=== PATIENT | female | born 1970 | race Caucasian/White ===

== ENCOUNTER 2017-03-16 17:05 | Observation (INO) | payer SELFPAY ==
[~2017-03-16 17:05] MED LIST: ISOVUE-370 76%-LOCM 1 ML ONE
[2017-03-16 17:31] LABS: #Basophils 0.1 thou/uL (0.0-0.2); #Eosinphils 0.4 thou/uL (0.0-0.7); #Lymphocytes 3.5 thou/uL (1.20-3.40); #Monocytes 0.8 thou/uL (0.11-0.59); #Neutrophils 13.4 thou/uL (1.40-6.50); %Basophils 0.5 % (0.0-1.0); %Lymphocytes 19.3 % (21.0-51.0); %Monocytes 4.5 % (0.0-10.0); Mean Platelet Volume 6.5 fL (7.4-10.4); Red Blood Cell (RBC) Count 5.42 mill/uL (4.20-5.40); White Blood Cell (WBC) Count 18.2 thou/uL (4.8-10.8)
[2017-03-16 17:51] LABS: ALT (SGPT) 12 U/L (8-55); AST (SGOT) 12 U/L (5-34); Alkaline Phosphatase 119 U/L (40-150); Anion Gap 14 mmol/L (10-20); BUN (Urea Nitrogen) 14 mg/dL (7.0-18.7); Bilirubin, Total 0.3 mg/dL (0.2-1.2); CK (CPK) 62 U/L (29-168); Calc. Creatinine Clearance 0 mL/min (70-130); Calcium 9.4 mg/dL (7.8-10.44); Carbon Dioxide 25 mmol/L (22-29); Chloride 102 mmol/L (98-107); Estimated GFR-MDRD 75; Globulin 4.2 g/dL (2.4-3.5); Lipase 14 U/L (8-78)
[2017-03-16 18:01] LABS: Troponin I Less than 0.010 ng/mL (< 0.028)
--- NOTE | 2017-03-16 18:21 | RAD ---
PORTABLE CHEST ONE VIEW: Date: 03-16-17 Time: 5:24 p.m. History: Chest pain. FINDINGS: The heart size is normal. The lungs are well expanded without focal areas of consolidation, pneumoth orax, or pleural effusions. IMPRESSION: No radiographic evidence of acute cardiopulmonary process. POS: [facility]
[2017-03-16] MEDS ORDERED: Nitroglycerin 2% Ointment 1 INCH/1 GM Packet ONE (18:30)
[2017-03-16] MEDS ORDERED: Nitroglycerin 0.4 MG TAB (25 Tab Bottle) ONE (18:38)
[2017-03-16 19:58] LABS: Bilirubin Negative (Negative); Blood, Urine Trace (Negative); Glucose, Urine (Dipstick) Negative (Negative); Ketone, Urine Negative (Negative); Nitrite Negative (Negative); Protein, Urine (Dipstick) Negative (Neg-Trace); Urobilinogen 0.2 mg/dL (0.2-1.0)
[2017-03-16 20:00] LABS: Bacteria/HPF 1+ HPF (None Seen); Hyaline Casts/LPF 0-3 HYALINE CAST LPF (0-3 Hyaline); Squamous Epithelial 0-3 HPF (0-3)
--- NOTE | 2017-03-16 20:27 | CT ---
CTA CHEST WITH 3D VOLUME RENDERING: Clinical history: Dyspnea, tachycardia. FINDINGS: There is a suboptimal contrast bolus within the pulmonary arterial system which precludes reliable a ssessment of the pulmonary arterial system. Thoracic aorta is non-aneurysmal. Lungs are clear. No ef fusion or pneumothorax. IMPRESSION: Suboptimal bolus for detection of pulmonary embolus. Consider VQ scan for further evaluation. POS: [facility]
[2017-03-16] MEDS ORDERED: Aspirin 325 MG TAB ONE (20:28)
[2017-03-16 20:57] LABS: Troponin I Less than 0.010 ng/mL (< 0.028)
[2017-03-16 21:41] LABS: Amphetamine Detected (NotDetected); Methadone Not Detected (NotDetected); Methamphetamine Detected (NotDetected)
[2017-03-16] MEDS ORDERED: Acetaminophen 500 MG TAB ONE (21:58)
--- NOTE | 2017-03-16 22:27 | HP ---
PRIMARY CARE PHYSICIAN: [facility] call admission. REASON FOR ADMISSION: Chest pain. HISTORY OF PRESENT ILLNESS: A 46-year-old female who has underlying morbid obesity, [facility]. She describes chest pain, left-sided, as well as substern al in location, constant pain, sharp in nature, nonradiating, no association of nausea, vomiting, di aphoresis, or shortness of breath. This pain is going on for the last 2-3 days without stop constan t. There is no specific aggravating or relieving factor. The patient does have history of methamph etamine abuse. Per patient, her last use was on 03/02/2017. She also reports that she was smoking before, but she quit smoking about a month ago. Patient also has some reproducible pain. She denie s any cough, hemoptysis, lower extremity edema, calf tenderness. She does report subjective feveris h feeling, but she did not measure temperature at home and she was afebrile in the emergency room. In the emergency room, patient was hypertensive. The patient reports that she has a history of hype rtension, but she was not taking any medication. She was slightly tachycardic. She had routine blo od test, which showed leukocytosis. Patient denies any UTI symptoms. She denies any constipation, diarrhea. She denies any pain anywhere else. She denies any hematochezia or melena. She denies an y viral illness. She denies any sore throat. REVIEW OF SYSTEMS: The following complete review of systems was negative, unless otherwise mentione d in the HPI or below: Constitutional: Weight loss or gain, ability to conduct usual activities. Skin: Rash, itching. Eyes: Double vision, pain. ENT/Mouth: Nose bleeding, neck stiffness, pain, tenderness. Cardiovascular: Palpitations, dyspnea on exertion, orthopnea. Respiratory: Shortnes s of breath, wheezing, cough, hemoptysis, fever or night sweats. Gastrointestinal: Poor appetite, abdominal pain, heartburn, nausea, vomiting, constipation, or diarrhea. Genitourinary: Urgency, fr equency, dysuria, nocturia. Musculoskeletal: Pain, swelling. Neurologic/Psychiatric: Anxiety, de pression. Allergy/Immunologic: Skin rash, bleeding tendency. Please see my HPI for pertinent posi tives and negatives. All other review of systems reviewed and negative except as mentioned in the H PI. When I saw this patient in the emergency room, patient was complaining of headache. She denies any GI symptoms. PAST MEDICAL HISTORY: Morbid obesity. Patient does report that she has history of hypertension, bu t it is untreated. PAST SURGICAL HISTORY: Cholecystectomy, . PAST PSYCHIATRIC: The patient denies any psychiatric illness. SOCIAL HISTORY: Patient drinks alcohol socially once a month. She has history of methamphetamine a buse and last use was on 03/02/2017. The patient is a former smoker. She quit smoking about 1 nicanor h ago. She is currently visiting [place] and lives with her mother. FAMILY HISTORY: Mother has a defibrillator. Father had heart attack. No strong family history of cancer or stroke. ALLERGIES: PENICILLIN. CURRENT HOME MEDICATIONS: Patient is not taking any prescribed or non-prescribed medication. EMERGENCY ROOM COURSE: The patient is given nitroglycerin 0.4 mg sublingual, aspirin 325 mg, anothe r nitroglycerin 0.4 mg sublingual, and IV fluid of 1 liter. PHYSICAL EXAMINATION: VITAL SIGNS: On arrival, blood pressure 145/91, pulse 103, respiratory rate 20, temperature 98.3, s aturation 96% on room air, weight 106.59 kilograms. GENERAL: Patient is currently alert, awake, in no obvious acute distress. HEENT: Normocephalic, atraumatic. Eyes: Pupils round, reactive to light. Extraocular muscles int act. ENT: Oropharynx within normal limits. Moist mucous membranes. No oral lesions. No pharyngeal kathy thema, no exudate. NECK: Supple. Range of motion is normal. No meningeal signs of irritation. LUNGS: Clear to auscultation without any rhonchi or rales. CARDIAC: S1, S2 regular, tachycardia, no murmur, no gallop, no rub. ABDOMEN: Morbid obesity limiting examination. No peritoneal sign, no guarding, no rigidity, no felisa ound, no epigastric tenderness, no Knight sign. BACK: Unremarkable, no CVA tenderness. EXTREMITIES: Upper extremity passive movements of all joints are normal. Lower extremities: No ed michelle. Good peripheral pulsation. She had no calf tenderness. SKIN: No skin rash. HEMATOLOGICAL SYSTEM: No lymphadenopathy. NEUROLOGIC: Nonfocal examination. The patient moves all 4 limbs. Plantar bilateral flexor. PSYCHIATRIC: Normal affect. SIGNIFICANT LABS: EKG based on my review reveals normal sinus rhythm, sinus tachycardia, left atria l enlargement. CT angiography was suboptimal contrast bolus, but no evidence of major PE. Chest x- ray based on my review, no acute cardiopulmonary process. CBC: WBC 18.2, hemoglobin 14.6, platelet 500, D-dimer less than 0.27. BMP: Sodium 137, potassium 4.4, chloride 102, carbon dioxide 25, BUN 14, creatinine 0.82, glucose 141, calcium 9.4. LFT: AST 12, ALT 12, alkaline phosphatase 119, albumin 3.8, lipase 14. Cardiac enzymes negative x2 . CK 62. Urinalysis showing high specific gravity. Urine test negative. ASSESSMENT AND PLAN: 1. Chest pain, acute. This patient has almost 3 days of constant pain. There is no aggravating or relieving factor. With a negative EKG, she had a CT angio which was negative for pulmonary embolis m though it was not good quality of CT angio, but her D-dimer is also negative, so unlikely to be fr om thromboembolic disorder given her low probability of PE or DVT. At this point, the patient has a few risk factors for coronary artery disease including her age, family history, and smoking history . I will also check urine drug screen. We will keep her in the hospital and do serial cardiac enzy mes and tomorrow morning, we will perform exercise Cardiolite stress test. We will check lipid prof ile for risk stratification. Meanwhile, we will continue with aspirin 325 mg p.o. daily and we will also check a TSH tomorrow morning. 2. Morbid obesity. Dietary education given. Healthy lifestyle measures discussed with the patient . 3. Hypertension. We will monitor patient's blood pressure while in hospital and if blood pressure is persistently high, then we will consider starting blood pressure medication if needed. We will p refer beta-brandy upon discharge. 4. Leukocytosis, unclear etiology, but we will repeat CBC tomorrow, may be acute stress response. Her urinalysis is clear and her chest x-ray and CT angio are also negative for any pneumonia. 5. History of drug abuse and smoking. I provided counseling to avoid any kind of illicit drug abus e and we will recheck urine drug screen as well. 6. Deep venous thrombosis prophylaxis not needed because we are expecting discharge in 24 hours. 7. Gastrointestinal prophylaxis, Pepcid 20 mg p.o. b.i.d. 8. Code status: The patient is FULL CODE. Patient does not have any surrogate decision maker. Disposition plan based on stress test result within 24 hours. Plan of care discussed with the shreya acevedo in detailed in the emergency room.
[2017-03-16] MEDS ORDERED: Ondansetron HCl/PF 4 MG/2 ML Vial IVP PRN (22:41)
[2017-03-16] MEDS ORDERED: Senokot 8.6 MG TAB PO PRN (22:41)
[2017-03-16] MEDS ORDERED: Loperamide HCl 2 MG CAP PO PRN (22:41)
[2017-03-16] MEDS ORDERED: HYDROcodone/Acetaminophen 10/325 mg Tablet PO PRN (22:41)
[2017-03-16] MEDS ORDERED: Acetaminophen 325 MG TAB PO PRN (22:41)
[2017-03-16] MEDS ORDERED: Ondansetron ODT 4 MG TAB PO PRN (22:41)
[2017-03-16] MEDS ORDERED: Lorazepam 1 MG TAB PO PRN (22:41)
[2017-03-16] MEDS ORDERED: Nitroglycerin 0.4 MG TAB (25 Tab Bottle) PO PRN (22:41)
[2017-03-16] MEDS ORDERED: Sodium Chloride 0.9% 1,000 ML IV SCH (22:41)
[2017-03-16] MEDS ORDERED: Zolpidem Tartrate 5 MG TAB PO PRN (22:41)
[2017-03-16] MEDS ORDERED: Milk Of Magnesia 30 ML UDCUP PO PRN (22:41)
[2017-03-16] MEDS ORDERED: Mag-Al 1200 mg/1200 mg/30 ML UDCUP PO PRN (22:41)
[2017-03-16] MEDS ORDERED: Ketorolac Tromethamine 30 MG/ML VIAL IVP PRN (22:41)
[2017-03-16 23:43] LABS: Troponin I 0.012 ng/mL (< 0.028)
[2017-03-17 02:16] LABS: #Eosinphils 0.5 thou/uL (0.0-0.7); #Lymphocytes 3.7 thou/uL (1.20-3.40); #Neutrophils 12.6 thou/uL (1.40-6.50); %Basophils 0.2 % (0.0-1.0); %Eosinophils 2.7 % (0.0-10.0); %Lymphocytes 20.8 % (21.0-51.0); %Monocytes 5.6 % (0.0-10.0); Hematocrit 38.3 % (36.0-47.0); Mean Platelet Volume 6.4 fL (7.4-10.4); Red Blood Cell (RBC) Count 4.72 mill/uL (4.20-5.40); White Blood Cell (WBC) Count 17.8 thou/uL (4.8-10.8)
[2017-03-17 02:45] LABS: Anion Gap 13 mmol/L (10-20); BUN (Urea Nitrogen) 15 mg/dL (7.0-18.7); Calc. Creatinine Clearance 167 mL/min (70-130); Calcium 8.7 mg/dL (7.8-10.44); Carbon Dioxide 21 mmol/L (22-29); Chloride 106 mmol/L (98-107); Cholesterol 177 mg/dl (< 200 Desired); Estimated GFR-MDRD 86; LDL Cholesterol, Calculated 107 mg/dL
[2017-03-17 02:48] LABS: Troponin I Less than 0.010 ng/mL (< 0.028)
[2017-03-17 07:53] VITALS: TEMP 98
[2017-03-17 07:59] VITALS: BP 128/58
[2017-03-17] MEDS ORDERED: Aspirin 325 MG TAB PO SCH (09:00)
[2017-03-17] MEDS ORDERED: FLU VACC QS2017-18 36 mo. & older 0.5 ML SYRINGE IM ONE (09:00)
[2017-03-17] MEDS ORDERED: Famotidine 20 MG TAB PO SCH (09:00)
--- NOTE | 2017-03-17 11:21 | NM ---
CARDIAC SPECT: CLINICAL HISTORY: 46-year-old female with chest pain and hypertension. Family history of coronary artery disease, smok er. TECHNIQUE: A stress-only myocardial perfusion scan was performed following the intravenous administration of 31 mCi technetium-99m sestamibi. Exercise stress was monitored and interpreted by Dr. Evans. FINDINGS: Homogeneous tracer distribution is seen in the myocardial segments on the post stress images. GATED SPECT LVEF: 80%. WALL MOTION EXAM: Normal. IMPRESSION: Normal post stress myocardial perfusion scan. POS: [facility]
--- NOTE | 2017-03-17 12:20 | DIS ---
TRANSFER OF CARE NOTE PRIMARY CARE PHYSICIAN: [facility] DATE OF ADMISSION: 03/16/2017 DATE OF DISCHARGE: 03/17/2017 FINAL DIAGNOSES: 1. Noncardiac chest pain. 2. Methamphetamine abuse. 3. Reactive hypertension. DISCHARGE MEDICATIONS: None. HOSPITAL COURSE: The patient presented to [facility] with left-sided chest pain, con stant, sharp, nonradiating. No associated symptoms, present for 2-3 days. No precipitating or reli eving factors. She had a history of methamphetamine use. Per patient she had not used it in a coup le weeks. Her workup involved a CTA of the thorax, which revealed no evidence of PE, dissection, et c. Normal comp metabolic profile, cardiac enzymes normal x4. A normal D-dimer, I am not sure why t he CT angio of the chest was done when she had a normal D-dimer. CBC had a reactive leukocytosis, n ormal hemoglobin and reactive platelet count. Drug screen was positive for THC, methamphetamines. Cardiac stress test done which is normal. I have discussed the situation with her. She is comforta ble with being discharged. She has been told she needs to find a PCP and to get help with substance abuse avoidance. CONSULTATIONS: None. PROCEDURES: None.
== END 2017-03-17 14:27 | disposition home or self-care (01) ==
LOC: ERS 17:05 → 2SW 21:24
PROVIDERS: ADMIT Internal Medicine; ATTEND Internal Medicine
DX: R07.89 Other chest pain (principal); F15.10 Other stimulant abuse, uncomplicated; I10 Essential (primary) hypertension; E66.01 Morbid (severe) obesity due to excess calories; Z68.41 Body mass index [BMI] 40.0-44.9, adult; Z88.0 Allergy status to penicillin; Z90.49 Acquired absence of other specified parts of digestive tract; Z98.891 History of uterine scar from previous surgery; Z87.891 Personal history of nicotine dependence; Z82.49 Family history of ischemic heart disease and other diseases of the circulatory system
CPT/HCPCS: 36415; 71010; 71275; 78452; 80048; 80053; 80061; 80306; 81003; 81015; 81025; 82550; 82553; 83690; 84484; 85025; 85379; 93005; 93017; 96360; 96361; 96374; A9500; G0378; J1885